=== PATIENT | female | born 1985 | race Caucasian/White ===

== ENCOUNTER 2021-06-21 18:10 | Emergency (ER) | payer MEDICAID ==
[~2021-06-21] VITALS: Ht 175.3 cm; Wt 79.5 kg
[~2021-06-21 18:10] MED LIST: HYDR-4383 PO
[2021-06-21 18:15] VITALS: BP 131/85
[2021-06-21] MEDS ORDERED: DOXY100C76 PO (20:04)
== END 2021-06-21 20:16 | disposition home or self-care (01) ==
LOC: ER 18:11
DX: L03.115 Cellulitis of right lower limb (principal)
CPT/HCPCS: 99283

== ENCOUNTER 2022-05-05 21:21 | Emergency (ER) | payer MEDICAID ==
[~2022-05-05] VITALS: Ht 175.3 cm; Wt 117.5 kg
[2022-05-05 23:25] VITALS: BP 135/88
[2022-05-05] MEDS ORDERED: CEPH250T PO (23:47)
[2022-05-05] MEDS ORDERED: FURO-150 PO (23:47)
[2022-05-05] MEDS ORDERED: POTA-192 PO (23:47)
[2022-05-05] MEDS: cephalexin 250mg capsule PO ONE (23:52)
[2022-05-05] MEDS: furosemide 20MG tablet PO ONE (23:52)
== END 2022-05-06 00:13 | disposition home or self-care (01) ==
LOC: ER 21:22
DX: L03.116 Cellulitis of left lower limb (principal); M79.605 Pain in left leg; Z79.899 Other long term (current) drug therapy
CPT/HCPCS: 99283